=== PATIENT | female | born 1965 | race African-American/Black ===

== ENCOUNTER 2019-03-30 17:07 | Emergency (ER) | payer OTHER ==
--- NOTE | 2019-03-30 18:40 | ER Document Report ---
ED Medical Screen (RME) - General Chief Complaint: Diarrhea Stated Complaint: DIARRHEA Time Seen by Provider: 03/30/19 18:24 Mode of Arrival: Ambulatory Information source: Patient Notes: Patient is a 54-year-old female comes emergency room with a complaint of having diarrhea ever since March 21. She states that she went to the walk-in clinic on this past Tuesday because of the diarrhea and she was placed on Cipro, potassium supplement, and Phenergan. She states that labs were run and she was told her labs were normal but decided to put her on antibiotic anyway. She states that she has not had any let up in her diarrhea. She is been unable to eat very much at all daily since the diarrhea started she is also had vomiting. She states that her stool on the first 4 days was black watery diarrhea. It is since kind of cleared up. She denies using any Imodium or Pepto-Bismol but she did take some Kaopectate. She tells me she is having at least 6-8 watery stools a day now. And she wakes up each morning having "messed in her bed". She denies have any fever. She denies having any abdominal pain with the exception of Cramping occasionally. She also denies any other medical history. TRAVEL OUTSIDE OF THE [place] IN LAST 30 DAYS: No - HPI Onset: Other Onset/Duration: Sudden - 9 days ago, Persistent, Worse Quality of pain: No pain Severity: Moderate Pain Level: 3 Associated Symptoms: Chills, Diarrhea, Nausea, Vomiting. denies: Abdominal pain Exacerbated by: Food Relieved by: Denies Similar symptoms previously: Yes Recently seen / treated by doctor: Yes - Related Data Smoking: Less than 1 pack/day Frequency of alcohol use: None Drug Abuse: None Allergies/Adverse Reactions: No Known Allergies Allergy (Unverified 03/30/19 17:11) Past Medical History - General Information source: Patient - Social History Cigarette use (# per day): Yes - Quarter pack of the Chew tobacco use (# tins/day): No Frequency of alcohol use: None Drug Abuse: None, Marijuana Lives with: Family Family history: Reviewed & Not Pertinent Renal/ Medical History: Denies: Hx Peritoneal Dialysis Review of Systems - Review of Systems Constitutional: See HPI, Weakness EENT: No symptoms reported Cardiovascular: No symptoms reported Respiratory: No symptoms reported Gastrointestinal: See HPI, Diarrhea, Nausea, Vomiting Genitourinary: No symptoms reported Female Genitourinary: No symptoms reported Musculoskeletal: No symptoms reported Skin: No symptoms reported Hematologic/Lymphatic: No symptoms reported Neurological/Psychological: No symptoms reported -: Yes All other systems reviewed and negative Physical Exam - Vital signs Vitals: Temp Pulse Resp BP Pulse Ox 98.5 F 118 H 16 110/72 100 03/30/19 17:17 03/30/19 17:17 03/30/19 17:17 03/30/19 17:17 03/30/19 17:17 Interpretation: Hypotensive, Tachycardic - Notes Notes: PHYSICAL EXAMINATION: GENERAL: Patient is well-nourished well-developed 54-year-old female who is in no apparent distress on physical exam. She does not appear in any discomfort or pain at this time. HEAD: Atraumatic, normocephalic. EYES: Pupils equal round and reactive to light, extraocular movements intact, conjunctiva are normal. ENT: Nares patent, oropharynx clear without exudates. Moist mucous membranes. NECK: Normal range of motion, supple without lymphadenopathy LUNGS: Breath sounds clear to auscultation bilaterally and equal. No wheezes rales or rhonchi. HEART: Tachycardic rate and rhythm without murmurs ABDOMEN: Soft, nontender, nondistended abdomen. No guarding, no rebound. No masses appreciated. Female : deferred Musculoskeletal: Normal range of motion, no pitting or edema. No cyanosis. NEUROLOGICAL: Normal speech, normal gait. Normal sensory, motor exams PSYCH: Normal mood, normal affect. SKIN: Warm, Dry, normal turgor, no rashes or lesions noted. Course - Vital Signs Vital signs: Temp Pulse Resp BP Pulse Ox 98.5 F 118 H 16 110/72 100 03/30/19 17:17 03/30/19 17:17 03/30/19 17:17 03/30/19 17:17 03/30/19 17:17
[2019-03-30 18:57] LABS: ABSOLUTE LYMPHOCYTES (AUTO) 1.8 10^3/uL (0.5-4.7); ABSOLUTE MONOCYTES (AUTO) 0.7 10^3/uL (0.1-1.4); ABSOLUTE NEUT (AUTO) 6.6 10^3/uL (1.7-8.2); BASOPHILS % (AUTO) 0.5 % (0-2); EOSINOPHILS % (AUTO) 0.5 % (0-6); HEMATOCRIT 48.1 % (36.0-47.0); HEMOGLOBIN 15.7 g/dL (12.0-15.5); LYMPHOCYTES % (AUTO) 19.4 % (13-45); MEAN CORPUSCULAR HEMOGLOBIN 26.8 pg (27.0-33.4); MEAN CORPUSCULAR HGB CONC 32.7 g/dL (32.0-36.0); MEAN CORPUSCULAR VOLUME 82 fl (80-97); MONOCYTES % (AUTO) 7.4 % (3-13); PLATELET COUNT 342 10^3/uL (150-450); RED BLOOD COUNT 5.87 10^6/uL (3.72-5.28); RED CELL DISTRIBUTION WIDTH 14.7 % (11.5-14.0); SEGMENTED NEUTROPHILS % (AUTO) 72.2 % (42-78); TOTAL CELLS COUNTED % (AUTO) 100 %; WHITE BLOOD COUNT 9.1 10^3/uL (4.0-10.5)
[2019-03-30 19:11] LABS: APPEARANCE,URINE CLOUDY; BILIRUBIN,URINE SMALL (NEGATIVE); COLOR,URINE YELLOW; GLUCOSE, URINE 50 mg/dL (NEGATIVE); KETONES,URINE TRACE mg/dL (NEGATIVE); LEUKOCYTE ESTERASE,URINE MODERATE (NEGATIVE); NITRITE,URINE NEGATIVE (NEGATIVE); PROTEIN,URINE 100 mg/dL (NEGATIVE); URINE SPECIFIC GRAVITY 1.026; UROBILINOGEN,URINE NEGATIVE mg/dL (<2.0)
[2019-03-30 19:14] LABS: ALANINE AMINOTRANSFERASE 47 U/L (9-52); ALBUMIN 5.6 g/dL (3.5-5.0); ALKALINE PHOSPHATASE 171 U/L (38-126); ASPARTATE AMINO TRANSFERASE 26 U/L (14-36); BILIRUBIN,DIRECT 0.4 mg/dL (0.0-0.4); BILIRUBIN,TOTAL 0.6 mg/dL (0.2-1.3); BLOOD UREA NITROGEN 19 mg/dL (7-20); GLUCOSE 139 mg/dL (75-110); LIPASE 285.5 U/L (23-300); POTASSIUM 3.6 mmol/L (3.6-5.0); TOTAL PROTEIN 9.3 g/dL (6.3-8.2)
[2019-03-30 19:20] LABS: CARBON DIOXIDE 21 mmol/L (22-30); CHLORIDE 101 mmol/L (98-107); SODIUM 143.4 mmol/L (137-145)
[2019-03-30 19:21] LABS: ANION GAP 21 (5-19)
--- NOTE | 2019-03-31 01:00 | ER Document Report ---
ED General - General Chief Complaint: Diarrhea Stated Complaint: DIARRHEA Time Seen by Provider: 03/30/19 18:24 Mode of Arrival: Ambulatory Notes: Patient is a 54-year-old female who denies chronic medical problems who presents with complaints of 4 days of diarrhea. Patient states that the watery diarrhea started several days ago, initially started to improve and then seemed to worsen again. She was seen in urgent care, started on antibiotics "just in case". She comes the emergency department tonight due to the persistence he of her diarrhea despite taking antibiotics and questions whether or not antibiotics are even making her worse. She notes some intermittent, mild, generalized abdominal cramping not currently present. She notes that her diarrhea has slowed and she has not had a bowel movement within the past several hours. Nothing has been noted to improve or worsen her symptoms. Denies fever, vomiting, or syncope. TRAVEL OUTSIDE OF THE [place] IN LAST 30 DAYS: No - Related Data Allergies/Adverse Reactions: No Known Allergies Allergy (Unverified 03/30/19 17:11) Past Medical History - General Information source: Patient - Social History Smoking Status: Current Every Day Smoker Cigarette use (# per day): Yes - Quarter pack of the Chew tobacco use (# tins/day): No Frequency of alcohol use: None Drug Abuse: None, Marijuana Lives with: Family Family History: Reviewed & Not Pertinent Patient has suicidal ideation: No Patient has homicidal ideation: No Renal/ Medical History: Denies: Hx Peritoneal Dialysis Review of Systems - Review of Systems Notes: Constitutional: Negative for fever. HENT: Negative for sore throat. Eyes: Negative for visual changes. Cardiovascular: Negative for chest pain. Respiratory: Negative for shortness of breath. Gastrointestinal: Positive for intermittent abdominal cramping, diarrhea Genitourinary: Negative for dysuria. Musculoskeletal: Negative for back pain. Skin: Negative for rash. Neurological: Negative for headaches, weakness or numbness. 10 point ROS negative except as marked above and in HPI. Physical Exam - Vital signs Vitals: Temp Pulse Resp BP Pulse Ox 98.5 F 118 H 16 110/72 100 03/30/19 17:17 03/30/19 17:17 03/30/19 17:17 03/30/19 17:17 03/30/19 17:17 Interpretation: Tachycardic Notes: PHYSICAL EXAMINATION: GENERAL: Well-appearing, well-nourished and in no acute distress. HEAD: Atraumatic, normocephalic. EYES: Pupils equal round and reactive to light, extraocular movements intact, sclera anicteric, conjunctiva are normal. ENT: nares patent, oropharynx clear without exudates. Moderately dry mucous membranes. NECK: Normal range of motion, supple without lymphadenopathy LUNGS: Breath sounds clear to auscultation bilaterally and equal. No wheezes rales or rhonchi. HEART: Regular rate and rhythm without murmurs ABDOMEN: Soft, nontender, normoactive bowel sounds. No guarding, no rebound. No masses appreciated. EXTREMITIES: Normal range of motion, no pitting or edema. No cyanosis. NEUROLOGICAL: No focal neurological deficits. Moves all extremities spontaneously and on command. PSYCH: Normal mood, normal affect. SKIN: Warm, Dry, normal turgor, no rashes or lesions noted. Course - Re-evaluation Re-evalutation: 03/31/19 00:59 Patient presents with concerns of 4 days of watery diarrhea although has not had any diarrhea while here in the emergency department by her own report. She has not had any associated nausea or vomiting. Vitals are within normal limits. She has no focal abdominal tenderness on exam. Patient was noted to be mildly tachycardic at time of presentation but this has resolved at the time of my evaluation. Patient was started on ciprofloxacin by an urgent care which I have instructed her to stop as it appears that her diarrhea started to get worse once this medication was started and there is no evidence of a bacterial infection at this point and she does not meet IDSA criteria for initiation of antibiotics at this time. Laboratories show mild renal dysfunction, unclear if this is acute or chronic in nature. Patient has been instructed to discontinue the medications as prescribed and follow-up with her primary care physician. Given absence of any focal abdominal pain by complaint or by exam very low clinical suspicion for surgical or life-threatening pathology such as biliary, appendicit is, pancreatitis, ischemic colitis or mesenteric ischemia. At this time will discharge with return precautions and follow-up recommendations. Verbal discharge instructions given a the bedside and opportunity for questions given. Medication warnings reviewed. Patient is in agreement with this plan and has verbalized understanding of return precautions and the need for primary care follow-up in the next 24-72 hours. 03/31/19 01:00 - Vital Signs Vital signs: Temp Pulse Resp BP Pulse Ox 98 F 78 16 110/74 99 03/31/19 01:10 03/31/19 01:10 03/31/19 01:10 03/31/19 01:10 03/31/19 01:10 - Laboratory Result Diagrams: 03/30/19 18:45 03/30/19 18:45 Laboratory results interpreted by me: 03/30/19 03/30/19 03/30/19 18:45 18:45 18:45 RBC 5.87 H Hgb 15.7 H Hct 48.1 H MCH 26.8 L RDW 14.7 H Carbon Dioxide 21 L Anion Gap 21 H Creatinine 1.29 H Est GFR ( Amer) 52 L Est GFR (Non-Af Amer) 43 L Glucose 139 H Calcium 11.0 H Alkaline Phosphatase 171 H Total Protein 9.3 H Albumin 5.6 H Urine Protein 100 H Urine Glucose (UA) 50 H Urine Ketones TRACE H Urine Bilirubin SMALL H Ur Leukocyte Esterase MODERATE H Discharge - Discharge Clinical Impression: Dehydration Diarrhea Qualifiers: Diarrhea type: presumed infectious Qualified Code(s): R19.7 - Diarrhea, unspecified Condition: Stable Disposition: HOME, SELF-CARE Additional Instructions: Your symptoms are likely due to a viral illness and should resolve in the next several days. You can take [id number] loperamide also known as Imodium as needed for diarrhea per box instructions. Continue to stay hydrated with plenty of solution such as Gatorade or Pedialyte. Please return if you develop severe abdominal pain, pass out, become unable to tolerate any oral fluids for 12 more hours, or any other symptoms that are concerning to you. Discontinue the antibiotics that were prescribed as these will likely make your diarrhea worse. If your diarrhea does persist for greater than a total of 7 days you may take the ciprofloxacin that you prescribed but only for 3 days as opposed to the 10- day course that was written. Follow-up with your primary care doctor within the next 48 to 72 hours.
[2019-03-31 01:12] VITALS: BP 110/74
== END 2019-03-31 01:10 | disposition home or self-care (01) ==
LOC: ER 17:07
DX: R19.7 Diarrhea, unspecified (principal); E86.0 Dehydration; R10.84 Generalized abdominal pain; F17.210 Nicotine dependence, cigarettes, uncomplicated
CPT/HCPCS: 36415; 80053; 81001; 83690; 85025; 87045; 87205; 87493; 89055; 99284